=== PATIENT | female | born 1960 | race African-American/Black ===

== ENCOUNTER 2017-07-20 13:41 | Emergency (ER) | payer OTHER ==
[~2017-07-20] VITALS: Ht 167.6 cm; Wt 90.7 kg
[2017-07-20 14:05] VITALS: BP 144/66
[2017-07-20] MEDS: traMADol 50mg tab ORAL ONE ×2 (14:53→14:59)
[2017-07-20] MEDS ORDERED: ACETAMINOPHEN-1 EAC1 ORAL (14:53)
--- NOTE | 2017-07-20 14:53 | Emergency Room Report ---
History of Present Illness General Chief Complaint: Pain Source: Patient Present Illness HPI 56 yo female patient presents to ER complaining of chronic left knee pain. Reports hx of 2 total knee replacement surgeries in 2015. Reports knee surgery "messed up" and she is having another surgery in August because a "screw came loose" in her knee. Requesting pain medication. Reports walking with walker. Reports pain with ambulation. Reports was not given pain medication at that time. Reports last imaging performed a few weeks ago. Denies new or worsening of symptoms. Denies fever, chest pain, SOB. Allergies: Coded Allergies: No Known Allergies (Unverified , 07/20/17) Patient History Past Medical History: see triage record Reviewed Nursing Documentation: PMH: Agreed; PSxH: Agreed Nursing Documentation-PMH Past Medical History: No History, Except For Hx Hypertension: Yes Hx Asthma: Yes Hx COPD: No - RA Review of Systems All Other Systems: negative except mentioned in HPI Physical Exam Vital Signs Date Time Temp Pulse Resp B/P (MAP) Pulse Ox O2 Delivery O2 Flow Rate FiO2 07/20/17 13:55 97.8 79 20 154/78 99 Room Air 97.9 Sp02 EP Interpretation: reviewed, normal General Appearance: well appearing, no apparent distress, alert, GCS 15, non- toxic Head: normocephalic, atraumatic Neck: full range of motion Respiratory: lungs clear, normal breath sounds, no rhonchi, no respiratory distress, no accessory muscle use, no wheezing, speaking full sentences Cardiovascular #1: regular rate, rhythm, no edema Musculoskeletal: back normal, digits/nails normal, gait/station normal, normal range of motion, non-tender, swelling, other - negative Blayne, negative anterior and psoterior drawer, negative Jairo, negative laxity with varus and valgus stress; scars along anterior of knee consistent with surigcal history , tender - distal and medial to right knee Neurologic: alert, oriented x3, responsive, motor strength/tone normal, sensory intact Psychiatric: mood/affect normal Skin: no rash Medical Decision Making PA Attestation Dr. Briscoe is my supervising Physician whom patient management has been discussed with. Diagnostic Impression: Primary Impression: Knee pain, chronic ER Course Pt. presents to the ED c/o knee pain and requesting pain medication. Ddx considered but are not limited to fracture, sprain, strain, contusion, dislocation. No erythema, no warmth to touch, no fever, nontoxic appearing, low suspicion for septic joint. Vital signs: are WNL, pt. is afebrile Ordered pain medication. ER COURSE Patient does not require new x-rays at this time. Patient reports was seeing friend at [facility] and "decided" to come to ER for pain relief for knee pain. Pain Medication provided in ED. Ordered Tramadol for pain. Patient reports Tramadol does not relieve pain. Reports usually takes "Vicodin and [place] 10". Reports Tylenol and Motrin do not help with pain. Informed patient would provide [place] in ER but not discharge with rx for [place], needs Rx from primary care provider for [place] pain medication. Patient agrees. CURES report shows patient provided with 5 day supply of [place] in April 2017, no other prescriptions provided. Patient instructed on RICE method: rest, ice, compression, elevation. Patient instructed to WBAT. Patient has walker, does not require crutches. Followup with primary care provider for pain treatment and referral to pain management. DISCHARGE: -Rx provided for Tylenol #3, #10 for pain symptoms. At this time pt. is stable for d/c to home. Patient is resting comfortably, in no acute distress, nontoxic appearing, talking without difficulty. Will provide printed patient care instructions, and any necessary prescriptions. Patient instructed to follow with primary care provider in 3 - 5 days and to request further orthopedic follow-up. Care plan and follow up instructions have been discussed with the patient prior to discharge. Take medications as directed. Patient questions asked and answered. Patient reports understanding and agreement to treatment plan. ER precautions given, patient instructed to return to ER immediately for any new or worsening of symptoms. Last Vital Signs Date Time Temp Pulse Resp B/P (MAP) Pulse Ox O2 Delivery O2 Flow Rate FiO2 07/20/17 13:55 97.8 79 20 154/78 99 Room Air 97.9 Disposition: HOME, SELF-CARE Condition: Stable Scripts Acetaminophen With Codeine (T#3) (TYLENOL #3 TAB*) Y Tab 1 TAB ORAL Q4H PRN for For Pain, #10 TAB Prov: Jesus Hudson 07/20/17 Referrals: NOT CHOSEN IPA/MD,REFERRING (PCP) Patient Instructions: Knee Pain, [id number] Additional Instructions: Patient instructed to follow up with primary care provider and discuss further referral to orthopedics and pain management. Patient instructed on RICE method: rest, ice, compression, elevation. Patient instructed to WBAT. Take medications as directed. Patient questions asked and answered. ER precautions given, patient instructed to return to ER immediately for any new or worsening of symptoms. Jesus Hudson Jul 20, 2017 14:53
[2017-07-20] MEDS: Norco 5mg/325mg tab ORAL ONE ×2 (14:58→15:04)
[2017-07-20 15:13] VITALS: BP 144/64
[2017-07-20 15:16] VITALS: BP 144/64
== END 2017-07-20 15:16 | disposition home or self-care (01) ==
LOC: EMR 14:26
DX: M25.562 Pain in left knee (principal); G89.29 Other chronic pain; I10 Essential (primary) hypertension; J45.909 Unspecified asthma, uncomplicated; M06.9 Rheumatoid arthritis, unspecified
CPT/HCPCS: 99283